=== PATIENT | female | born 1985 | race Caucasian/White ===

== ENCOUNTER → 2017-09-23 | Outpatient (CLI) | payer MEDICAID ==
[~2017-09-23] MED LIST: ALLO100T30 PO; BUPR-86 PO; CYAN100063 IM; ERGO500017 PO; HYDR50TA3 PO; MEDR10TA PO; ONDA4TAB7 PO; OXYC-302 PO; POTA10TA5 PO; RANI150C PO; SUCR1ORA5 PO; TAMS-11 PO
== END | disposition home or self-care (01) ==
LOC: CFH 08:52
PROVIDERS: ATTEND Surgery
DX: Z01.818 Encounter for other preprocedural examination (principal); E66.01 Morbid (severe) obesity due to excess calories
CPT/HCPCS: 74241